=== PATIENT | female | born 2000 | race Caucasian/White ===

== ENCOUNTER 2018-09-27 21:16 | Emergency (ER) | payer SELFPAY ==
[2018-09-27 21:46] LABS: APPEARANCE,URINE CLEAR; BILIRUBIN,URINE NEGATIVE (NEGATIVE); COLOR,URINE COLORLESS; GLUCOSE, URINE NEGATIVE (NEGATIVE); KETONES,URINE NEGATIVE (NEGATIVE); LEUKOCYTE ESTERASE,URINE NEGATIVE (NEGATIVE); NITRITE,URINE NEGATIVE (NEGATIVE); PROTEIN,URINE NEGATIVE (NEGATIVE); URINE SPECIFIC GRAVITY 1.001; UROBILINOGEN,URINE NEGATIVE mg/dL (<2.0)
--- NOTE | 2018-09-27 22:37 | ER Document Report ---
ED General - General Chief Complaint: Urinary Frequency Stated Complaint: ABDOMINAL PAIN Time Seen by Provider: 09/27/18 21:50 TRAVEL OUTSIDE OF THE [place] IN LAST 30 DAYS: No - HPI Patient complains to provider of: Abdominal pain urinary frequency Notes: Dental pain suprapubic in nature ongoing earlier today. Patient also complains of urinary frequency. Patient is currently approximately 11-12 weeks. Patient has yet to follow-up with [facility] states she is taking vitamins. Patient is a . Patient denies any vaginal bleeding or vaginal discharge at this time. Otherwise resting comfortably upon my evaluation. Patient states slight nausea throughout the no vomiting - Related Data Allergies/Adverse Reactions: No Known Allergies Allergy (Unverified 11/15/15 19:31) Past Medical History - Social History Smoking Status: Never Smoker Chew tobacco use (# tins/day): No Frequency of alcohol use: None Drug Abuse: None Family History: Reviewed & Not Pertinent Patient has suicidal ideation: No Patient has homicidal ideation: No Renal/ Medical History: Denies: Hx Peritoneal Dialysis Skin Medical History: Reports Hx Eczema Past Surgical History: Reports: Hx Myringotomy, Hx Orthopedic Surgery - L knee - Immunizations Immunizations up to date: Yes Review of Systems - Review of Systems Constitutional: No symptoms reported EENT: No symptoms reported Cardiovascular: No symptoms reported Respiratory: No symptoms reported Gastrointestinal: Abdominal pain, Nausea Genitourinary: Frequency Female Genitourinary: No symptoms reported Musculoskeletal: No symptoms reported Skin: No symptoms reported Hematologic/Lymphatic: No symptoms reported Neurological/Psychological: No symptoms reported -: Yes All other systems reviewed and negative Physical Exam - Vital signs Vitals: Temp Pulse Resp BP Pulse Ox 97.7 F 84 16 131/61 H 99 09/27/18 21:20 09/27/18 21:20 09/27/18 21:20 09/27/18 21:20 09/27/18 21:20 Interpretation: Normal - General General appearance: Appears well, Alert - HEENT Head: Normocephalic, Atraumatic Eyes: Normal Pupils: PERRL - Respiratory Respiratory status: No respiratory distress Chest status: Nontender Breath sounds: Normal Chest palpation: Normal - Cardiovascular Rhythm: Regular Heart sounds: Normal auscultation Murmur: No - Abdominal Inspection: Normal Distension: No distension Bowel sounds: Normal Tenderness: Nontender Organomegaly: No organomegaly - Back Back: Normal, Nontender - Extremities General upper extremity: Normal inspection, Nontender, Normal color, Normal ROM, Normal temperature General lower extremity: Normal inspection, Nontender, Normal color, Normal ROM, Normal temperature, Normal weight bearing. No: Lenora's sign - Neurological Neuro grossly intact: Yes Cognition: Normal Orientation: AAOx4 [place] Coma Scale Eye Opening: Spontaneous [place] Coma Scale Verbal: Oriented [place] Coma Scale Motor: Obeys Commands Arline Coma Scale Total: 15 Speech: Normal Motor strength normal: LUE, RUE, LLE, RLE Sensory: Normal - Psychological Associated symptoms: Normal affect, Normal mood - Skin Skin Temperature: Warm Skin Moisture: Dry Skin Color: Normal Course - Re-evaluation Re-evalutation: 09/28/18 02:50 Patient's heart tones were 171+ motion with head circumference measuring approximately 12 weeks. Urinalysis not revealing signs of infection otherwise patient also looks very well-hydrated no signs of ketones no signs of spilling of glucose in the urine. Patient urine will be sent for culture due to her frequency will more likely her abdominal pain and the frequency was related to the did explain round ligament pain to the patient recommend continue hydration Tylenol for pain recommend follow-up with [facility] continue to take her vitamins. We will give the patient a prescription for Reglan and information about nausea medication safe for - Vital Signs Vital signs: Temp Pulse Resp BP Pulse Ox 98.0 F 84 16 123/59 L 97 09/27/18 22:41 09/27/18 22:41 09/27/18 22:41 09/27/18 22:41 09/27/18 22:41 - Laboratory Laboratory results interpreted by me: 09/27/18 21:27 Urine HCG, Qual POSITIVE H Discharge - Discharge Clinical Impression: Qualifiers: Weeks of gestation: 12 weeks Qualified Code(s): Z3A.12 - 12 weeks gestation of Abdominal pain during Qualifiers: Trimester: first trimester Qualified Code(s): O26.891 - Other specified related conditions, first trimester Condition: Good Disposition: HOME, SELF-CARE Instructions: Pelvic Pain in ([facility]), ([facility]) Additional Instructions: Please continue to take your vitamins may take the Reglan as prescribed for any nausea that you may have recommend following up with health department or [facility] for further evaluation of the . Return to the ER for any concerns would recommend pelvic rest nothing inside the vagina no intercourse until you see an [facility] return to ER for any concerns You have been seen for vomiting during . You should continue to drink plenty of water and consider taking a solution such as Pedialyte if your having difficulty eating food. Please return if you become unable to drink any fluids for more than 12 hours, urinate less than twice a day, pass out, or have any other symptoms that are concerning to you. For nausea and vomiting during I recomment: Start with 10-12.5 mg of pyridoxine (vitamin B6) three times a day for 2 days. If not fully effective, Increase to 12.5 mg of pyridoxine four times a day for 2 days. If not fully effective, Increase to 25 mg of pyridoxine three times a day for 2 days. If not fully effective, Continue 25 mg pyridoxine 3 times a day, and add 12.5 mg of doxylamine before bedtime each day for 2 days. If not fully effective, Continue 25 mg pyridoxine 3 times a day, and take 12.5 mg of doxylamine twice a day. If not fully effective, Continue 25 mg pyridoxine 3 times a day, and take 12.5 mg of doxylamine three times a day. If not fully effective, Continue 25 mg pyridoxine 3 times a day, and 12.5 mg of doxylamine 3 times a day, while adding Emetrol, one to two tablespoons (15-30 cc) taken once or twice a day as needed. (Emetrol is an [id number] mixture of sugar syrups and phosphoric acid [phosphorylated carbohydrate solution]) that acts by soothing the actual wall of the gastrointestinal tract). If not fully effective, Consult with your doctor. Prescriptions: Metoclopramide HCl [Reglan] 5 mg PO Q6 #30 tablet
[2018-09-27 22:43] VITALS: BP 123/59
== END 2018-09-27 22:43 | disposition home or self-care (01) ==
LOC: ER 21:16
DX: O26.891 Other specified pregnancy related conditions, first trimester (principal); R10.2 Pelvic and perineal pain; R11.2 Nausea with vomiting, unspecified; Z3A.12 12 weeks gestation of pregnancy
CPT/HCPCS: 81001; 81025; 87086; 99284

== ENCOUNTER 2019-09-28 06:56 | Emergency (ER) | payer MEDICAID ==
--- NOTE | 2019-09-28 09:33 | ER Document Report ---
ED Medical Screen (RME) - General Chief Complaint: Upper Abdominal Pain Stated Complaint: DIARRHEA,FEVER,STOMACH PAIN Time Seen by Provider: 09/28/19 09:17 Mode of Arrival: Ambulatory Information source: Patient Notes: 19-year-old female with no past medical history presents to the emergency department with reports of diarrhea x3 since yesterday and abdominal pain. Denies with void. Denies fever vomiting. Abdomen soft tender to palpate periumbilical and right lower quadrant. Patient is breast-feeding I have greeted and performed a rapid initial assessment of this patient. A comprehensive ED assessment and evaluation of the patient, analysis of test results and completion of the medical decision making process will be conducted by additional ED providers. TRAVEL OUTSIDE OF THE [place] IN LAST 30 DAYS: No - Related Data Allergies/Adverse Reactions: No Known Allergies Allergy (Verified 09/28/19 07:46) Past Medical History - Social History Chew tobacco use (# tins/day): No Frequency of alcohol use: None Drug Abuse: None Renal/ Medical History: Denies: Hx Peritoneal Dialysis Skin Medical History: Reports Hx Eczema Past Surgical History: Reports: Hx Myringotomy, Hx Orthopedic Surgery - L knee - Immunizations Immunizations up to date: Yes Physical Exam - Vital signs Vitals: Temp Pulse Resp BP Pulse Ox 97.8 F 85 20 95/51 L 98 09/28/19 07:14 09/28/19 07:14 09/28/19 07:14 09/28/19 07:14 09/28/19 07:14 Course - Vital Signs Vital signs: Temp Pulse Resp BP Pulse Ox 97.8 F 85 20 95/51 L 98 09/28/19 07:14 09/28/19 07:14 09/28/19 07:14 09/28/19 07:14 09/28/19 07:14
[2019-09-28] MEDS ORDERED: ONDANSETRON 4 MG TAB.RAPDIS PO ONE ×2 (09:38→09:42)
[2019-09-28] MEDS ORDERED: ONDANSETRON HCL INJ/PF 4 MG/2 ML SDV IV ONE (09:38)
[2019-09-28] MEDS ORDERED: NORMAL SALINE 1000 ML 1,000 ML IV ONE (09:38)
--- NOTE | 2019-09-28 09:39 | ER Document Report ---
HPI - HPI Patient complains to provider of: Nausea diarrhea Time Seen by Provider: 09/28/19 09:17 Onset: Yesterday Onset/Duration: Gradual, Better Quality of pain: Achy Pain Level: 3 Context: Patient presents complaining of nausea and diarrhea that started yesterday. Patient states she has had abdominal pain that is started to ease up. Patient reports fever of 100 at home. No urinary symptoms. Associated Symptoms: Diarrhea, Nausea. denies: Rhinnorhea Exacerbated by: Denies Relieved by: Denies Similar symptoms previously: No Recently seen / treated by doctor: No - ROS ROS below otherwise negative: Yes Systems Reviewed and Negative: Yes All other systems reviewed and negative - CONSTITUTIONAL Constitutional: REPORTS: Fever - 100. last night. DENIES: Chills - EENT EENT: DENIES: Sore Throat, Ear Pain, Eye problems - NEURO Neurology: DENIES: Headache - CARDIOVASCULAR Cardiovascular: DENIES: Chest pain - RESPIRATORY Respiratory: DENIES: Trouble Breathing, Coughing - GASTROINTESTINAL Gastrointestinal: REPORTS: Abdominal Pain - mid upper abdo started yesterd, Nausea, Diarrhea. DENIES: Patient vomiting, Constipation, Black / Bloody Stools - URINARY Urinary: DENIES: Dysuria, Urgency, Frequency - REPRODUCTIVE LMP: breast feeding Reproductive: DENIES: : - DERM Skin Color: Normal Skin Problems: None Past Medical History - General Information source: Patient - Social History Smoking Status: Never Smoker Chew tobacco use (# tins/day): No Frequency of alcohol use: None Drug Abuse: None Family History: Reviewed & Not Pertinent Patient has suicidal ideation: No Patient has homicidal ideation: No - Medical History Medical History: Negative Renal/ Medical History: Denies: Hx Peritoneal Dialysis Skin Medical History: Reports Hx Eczema Past Surgical History: Reports: Hx Myringotomy, Hx Orthopedic Surgery - L knee - Immunizations Immunizations up to date: Yes Vertical Provider Document - CONSTITUTIONAL Agree With Documented VS: Yes Exam Limitations: No Limitations General Appearance: WD/WN, No Apparent Distress - INFECTION CONTROL TRAVEL OUTSIDE OF THE [place] IN LAST 30 DAYS: No - HEENT HEENT: Atraumatic, Normocephalic - NECK Neck: Normal Inspection, Supple. negative: Lymphadenopathy-Left, Lymphadenopathy-Right - RESPIRATORY Respiratory: Breath Sounds Normal, No Respiratory Distress - CARDIOVASCULAR Cardiovascular: Regular Rate, Regular Rhythm, No Murmur - GI/ABDOMEN Gastrointestinal: Abdomen Soft, Abdomen Tender - Periumbilical, No Organomegaly. negative: Abdominal Rebound, Abdominal Mass - BACK Back: Normal Inspection - MUSCULOSKELETAL/EXTREMETIES Musculoskeletal/Extremeties: SVETA MCCOY - NEURO Level of Consciousness: Awake, Alert, Appropriate Motor/Sensory: No Motor Deficit - DERM Integumentary: Warm, Dry, No Rash Course - Re-evaluation Re-evalutation: 09/28/19 09:38 Patient is refusing to have any lab work performed or IV fluids. Patient only wants oral medication at this time. 09/28/19 10:38 Patient's abdominal pain has improved and nausea has resolved at this time. Patient is requesting discharge paperwork. Patient otherwise appears stable for discharge. Patient encouraged to increase oral fluids and stay well-hydrated. - Vital Signs Vital signs: Temp Pulse Resp BP Pulse Ox 97.8 F 85 20 95/51 L 98 09/28/19 07:14 09/28/19 07:14 09/28/19 07:14 09/28/19 07:14 09/28/19 07:14 Discharge - Discharge Clinical Impression: Nausea Abdominal pain Qualifiers: Abdominal location: unspecified location Qualified Code(s): R10.9 - Unspecified abdominal pain Diarrhea Qualifiers: Diarrhea type: unspecified type Qualified Code(s): R19.7 - Diarrhea, unspecified Condition: Stable Disposition: HOME, SELF-CARE Instructions: Abdominal Pain ([facility]), Antinausea Medication ([facility]), Diarrhea, Nonspecific ([facility]), Viral Syndrome ([facility]) Additional Instructions: Return immediately for any new or worsening symptoms Followup with your primary care provider, call tomorrow to make a followup appointment Prescriptions: Ondansetron HCl [Zofran 4 mg Tablet] 1 - 2 tab PO Q6 PRN #15 tablet PRN Reason:
[2019-09-28 09:41] LABS: APPEARANCE,URINE CLEAR; BILIRUBIN,URINE NEGATIVE (NEGATIVE); COLOR,URINE STRAW; GLUCOSE, URINE NEGATIVE (NEGATIVE); KETONES,URINE NEGATIVE (NEGATIVE); PROTEIN,URINE NEGATIVE (NEGATIVE); URINE SPECIFIC GRAVITY 1.009; UROBILINOGEN,URINE NEGATIVE mg/dL (<2.0)
[2019-09-28 10:17] VITALS: BP 111/66
== END 2019-09-28 11:00 | disposition home or self-care (01) ==
LOC: ER 06:56
DX: R11.0 Nausea (principal); R19.7 Diarrhea, unspecified; R10.13 Epigastric pain; R10.815 Periumbilic abdominal tenderness
CPT/HCPCS: 99284; 81025; 81001; S0119